=== PATIENT | female | born 1980 | race African-American/Black ===

== ENCOUNTER 2021-07-19 10:40 | Emergency (ER) | payer OTHER ==
[2021-07-19 10:59] VITALS: BP 144/87; PULSE 74; TEMP 99.2; BMI 22.3
[2021-07-19] MEDS ORDERED: SODIUM CHLORIDE 0.9% 1000 ML INFUS.BAG IV ONE (11:02)
[2021-07-19 12:06] LABS: HEMATOCRIT 44.7 % (32.4-45.2); HEMOGLOBIN 15.6 G/dL (10.7-15.3); MCH 32.9 pg (25.7-33.7); MCHC 34.8 g/dl (32.0-36.0); MEAN CELL VOLUME 94.6 fl (80-96); MEAN PLT VOLUME 8.6 fl (7.5-11.1); PLATELET COUNT 170.5 10^3/uL (134-434); RBC 4.73 10^6/uL (3.60-5.2); RDW 13.5 % (11.6-15.6); WHITE BLOOD COUNT 10.4 10^3/uL (4.0-10.8)
[2021-07-19 12:14] LABS: ALBUMIN 4.1 g/dl (3.4-5.0); BILIRUBIN,TOTAL 1.1 mg/dl (0.2-1); CALCIUM 9.4 mg/dl (8.5-10); CREATININE 0.7 mg/dl (0.55-1.3); TOT PROT 7.1 g/dl (6.4-8.2)
[2021-07-19] MEDS ORDERED: POTASSIUM CHLORIDE TABS 20 MEQ TABLET.ER (FP) PO ONE ×2 (13:26→13:49)
[2021-07-19] MEDS ORDERED: ONDANSETRON 4 MG/2 ML VIAL IVPUSH ONE (13:27)
[2021-07-19] MEDS ORDERED: FAMOTIDINE 20 MG/50 ML IVPB 20 MG/50 ML MG IVPB ONE ×2 (13:27→13:48)
[2021-07-19] MEDS ORDERED: ONDANSETRON 4 MG/2 ML VIAL ONE (13:48)
[2021-07-19 15:34] LABS: EPITHELIAL CELLS FEW /hpf
== END 2021-07-19 15:41 | disposition home or self-care (01) ==
LOC: FER 10:40
PROC: 3E033GC Introduction of Other Therapeutic Substance into Peripheral Vein, Percutaneous Approach (ICD-10-PCS; principal; 2021-07-19)
DX: N83.202 Unspecified ovarian cyst, left side (principal); K29.70 Gastritis, unspecified, without bleeding
CPT/HCPCS: 36415; 74177-TC; 76830-TC; 80053; 81003; 81015; 81025; 83690; 85027; 87804; 96365; 96375; 99285-25; Q9967

== ENCOUNTER 2021-08-01 10:42 | Emergency (ER) | payer OTHER ==
[2021-08-01 11:04] VITALS: BP 117/84; PULSE 84; TEMP 97.6; BMI 24.9
[2021-08-01] MEDS ORDERED: ACETAMINOPHEN 325 MG TABLET (FP) PO ONE (12:01)
[2021-08-01] MEDS ORDERED: ACETAMINOPHEN 325 MG TABLET (FP) ONE (12:21)
== END 2021-08-01 14:38 | disposition home or self-care (01) ==
LOC: FER 10:42
DX: M25.532 Pain in left wrist (principal)
CPT/HCPCS: 73110-TC-LT-FY; 99283-25

== ENCOUNTER 2021-08-21 14:23 | Emergency (ER) | payer OTHER ==
[2021-08-21 15:14] VITALS: BP 134/91; PULSE 68; TEMP 97.5; BMI 24.9
== END 2021-08-21 17:43 | disposition home or self-care (01) ==
LOC: FER 14:23
DX: S83.91XA Sprain of unspecified site of right knee, initial encounter (principal)
CPT/HCPCS: 73560-TC-RT-FY; 99284-25

== ENCOUNTER 2021-10-18 09:55 | Emergency (ER) | payer OTHER ==
[2021-10-18 10:18] VITALS: BP 142/85; PULSE 89; TEMP 97.9; BMI 26.4
== END 2021-10-18 11:10 | disposition home or self-care (01) ==
LOC: FER 09:55
DX: M25.561 Pain in right knee (principal); W09.0XXA Fall on or from playground slide, initial encounter
CPT/HCPCS: 99281-25

== ENCOUNTER 2021-11-04 20:23 | Emergency (ER) | payer OTHER ==
[2021-11-04 20:35] VITALS: BP 133/83; PULSE 85; RESP 18; TEMP 98.6; BMI 25.9
== END 2021-11-04 20:55 | disposition home or self-care (01) ==
LOC: FER 20:23
DX: R21 Rash and other nonspecific skin eruption (principal); M79.89 Other specified soft tissue disorders
CPT/HCPCS: 99282-25

== ENCOUNTER 2022-01-15 10:25 | Emergency (ER) | payer OTHER ==
[2022-01-15 10:35] VITALS: BP 172/81; PULSE 57; RESP 18; TEMP 99; BMI 25.1
== END 2022-01-15 10:50 | disposition home or self-care (01) ==
LOC: FER 10:25
DX: R11.2 Nausea with vomiting, unspecified (principal)
CPT/HCPCS: 99283-25

== ENCOUNTER 2022-05-18 22:33 | Emergency (ER) | payer OTHER ==
[2022-05-18 22:43] VITALS: BP 138/90; PULSE 83; RESP 16; TEMP 97.8; BMI 26.4
[2022-05-18] MEDS ORDERED: AZITHROMYCIN 500 MG TABLET PO ONE (22:49)
[2022-05-18] MEDS ORDERED: AZITHROMYCIN 250 MG TABLET ONE (22:49)
== END 2022-05-18 23:02 | disposition home or self-care (01) ==
LOC: FER 22:33
DX: J32.9 Chronic sinusitis, unspecified (principal)
CPT/HCPCS: 99283-25

== ENCOUNTER 2022-10-20 20:35 | Emergency (ER) | payer OTHER ==
[2022-10-20] MEDS ORDERED: KETOROLAC TROMETHAMINE 30 MG/1 ML VIAL IM ONE (20:42)
[2022-10-20] MEDS ORDERED: KETOROLAC TROMETHAMINE 30 MG/1 ML VIAL ONE ×2 (20:44→21:51)
[2022-10-20 20:45] VITALS: BP 151/93; PULSE 70; RESP 16; TEMP 98.2; BMI 27.3
== END 2022-10-20 21:50 | disposition home or self-care (01) ==
LOC: FER 20:35
PROC: 3E0233Z Introduction of Anti-inflammatory into Muscle, Percutaneous Approach (ICD-10-PCS; principal; 2022-10-20)
DX: M54.2 Cervicalgia (principal); M79.10 Myalgia, unspecified site; W01.0XXA Fall on same level from slipping, tripping and stumbling without subsequent striking against object, initial encounter; Y92.002 Bathroom of unspecified non-institutional (private) residence as the place of occurrence of the external cause
CPT/HCPCS: 71046-TC-FY; 73030-TC-LT-FY; 73030-TC-RT-FY; 99284-25

== ENCOUNTER 2024-01-25 11:42 | Emergency (ER) | payer OTHER ==
[2024-01-25 11:51] VITALS: BP 139/98; PULSE 74; RESP 18; TEMP 98.8; BMI 28.9
[2024-01-25] MEDS ORDERED: IBUPROFEN 400 MG TABLET (FP) PO ONE (12:02)
[2024-01-25] MEDS ORDERED: LIDOCAINE 5% TOPICAL PATCH ONE (12:02)
[2024-01-25] MEDS: IBUPROFEN 400 MG TABLET (FP) PO ONE (12:06)
[2024-01-25] MEDS: LIDOCAINE 5% TOPICAL PATCH TP ONE (12:07)
[2024-01-25] MEDS ORDERED: LIDOCAINE PATCH REMOVAL MC SCH (22:00)
== END 2024-01-25 12:50 | disposition home or self-care (01) ==
LOC: FER 11:42
DX: M54.50 Low back pain, unspecified (principal); M79.661 Pain in right lower leg; W18.39XA Other fall on same level, initial encounter
CPT/HCPCS: 99283-25

== ENCOUNTER 2024-02-01 11:28 | Emergency (ER) | payer OTHER ==
[2024-02-01 11:33] VITALS: BP 130/78; PULSE 72; RESP 18; TEMP 98.6; BMI 28.7
== END 2024-02-01 12:12 | disposition home or self-care (01) ==
LOC: FER 11:28
DX: R21 Rash and other nonspecific skin eruption (principal)
CPT/HCPCS: 36415; 86618; 99283-25